=== PATIENT | female | born 1975 | race Caucasian/White ===

== ENCOUNTER 2021-01-16 08:34 | Emergency (ER) | payer OTHER ==
[~2021-01-16] VITALS: Ht 165.1 cm; Wt 76.7 kg
[2021-01-16] MEDS ORDERED: WELLBUTRIN 100100 MG PO (08:47)
[2021-01-16] MEDS ORDERED: ZOLOFT50 M1 PO (08:47)
[2021-01-16] MEDS ORDERED: HYDROCODON-ACE1 EAC7 PO (10:24)
[2021-01-16] MEDS ORDERED: IBUPROFEN 800800 M1 PO (10:24)
[2021-01-16] MEDS ORDERED: FLEXERIL PO (10:24)
[2021-01-16 10:42] VITALS: BP 146/72
== END 2021-01-16 10:48 | disposition home or self-care (01) ==
LOC: M.ERS 08:34
DX: S46.912A Strain of unspecified muscle, fascia and tendon at shoulder and upper arm level, left arm, initial encounter (principal); F32.9 Major depressive disorder, single episode, unspecified; Z79.899 Other long term (current) drug therapy; W19.XXXA Unspecified fall, initial encounter; Y93.89 Activity, other specified; Y92.89 Other specified places as the place of occurrence of the external cause; Y99.8 Other external cause status